=== PATIENT | female | born 1955 | race Caucasian/White ===

== ENCOUNTER 2022-06-26 07:17 | Outpatient (CLI) | payer MEDICARE, OTHER | END 2022-06-26 23:59 | disposition home or self-care (01) | LOC: LAB 07:17 | PROVIDERS: ATTEND Surgery | DX: Z01.812 Encounter for preprocedural laboratory examination (principal); Z20.822 Contact with and (suspected) exposure to COVID-19 ==

== ENCOUNTER 2022-06-29 07:24 | Inpatient (IN) | payer MEDICARE, OTHER ==
[~2022-06-29] VITALS: Ht 152.4 cm; Wt 82.6 kg
[2022-06-29 07:51] LABS: HEMATOCRIT 40.5 % (31.2-41.9); MEAN CORPUSCULAR HEMOGLOBIN 32.7 uug (24.7-32.8); MEAN CORPUSCULAR VOLUME 95.8 fL (75.5-95.3); PLATELET COUNT (AUTO) 207 K/uL (179-408)
[2022-06-29 08:05] LABS: BILIRUBIN,TOTAL 1.5 mg/dL (0.2-1.0); CREATININE 0.8 mg/dL (0.6-1.3); POTASSIUM 3.8 mmol/L (3.5-5.1)
[2022-06-29 08:28] LABS: *BLOOD, URINE NEGATIVE (NEGATIVE); *CLARITY,URINE CLEAR (CLEAR); *COLOR,URINE YELLOW (YELLOW); *KETONES,URINE NEGATIVE (NEGATIVE); *UROBILINOGEN,URINE 0.2 E.U./dl (NORMAL); LEUKOCYTE ESTERASE ,URINE NEGATIVE (NEGATIVE); NITRITE, URINE NEGATIVE (NEGATIVE); UGLUCOSE NEGATIVE (NEGATIVE)
[2022-06-29 09:22] LABS: *BILIRUBIN,URIN 1+ (NEGATIVE)
[2022-06-29 09:41] LABS: RBC,URINE 0-3 /HPF (0-3)
[2022-06-29 09:42] LABS: BACTERIA,URINE FEW /HPF (NONE SEEN); SQUAMOUS EPITHELIAL CELL,UR MODERATE /HPF (NONE SEEN); WBC,URINE 0-3 /HPF (0-3)
[2022-06-29] MEDS ORDERED: METHYLENE BLUE 50 MG/10 ML AMPUL (0.5%) ONE (09:42)
[2022-06-29] MEDS ORDERED: PROPOFOL 200 MG/20 ML BOTTLE ONE ×3 (10:55)
[2022-06-29] MEDS ORDERED: LIDOCAINE-MPF 2% 5 ML VIAL ONE (10:55)
[2022-06-29] MEDS ORDERED: TELM40TA8 PO (13:44)
[2022-06-29] MEDS ORDERED: METO50TA16 PO (13:44)
[2022-06-29] MEDS ORDERED: MECL-159 PO (13:44)
[2022-06-29] MEDS ORDERED: OXYB5TAB16 PO (13:44)
[2022-06-29] MEDS ORDERED: MAGN400C PO (13:44)
[2022-06-29] MEDS ORDERED: OMEG1CAP PO (13:44)
[2022-06-29] MEDS ORDERED: SIMV-46 PO (13:44)
[2022-06-29] MEDS ORDERED: OMEP20CA15 PO (13:44)
[2022-06-29] MEDS ORDERED: CYCL5TAB PO (13:44)
[2022-06-29 13:56] VITALS: BP 144/62
[2022-06-29] MEDS ORDERED: ZOLPIDEM 5 MG TABLET PO PRN (15:45)
[2022-06-29] MEDS ORDERED: MORPHINE SULFATE 2 MG/1 ML DISP.SYRIN IV PRN (15:45)
[2022-06-29] MEDS ORDERED: MECLIZINE HCL 25 MG TABLET PO PRN (15:45)
[2022-06-29] MEDS ORDERED: ACETAMINOPHEN 325 MG TABLET PO PRN (15:45)
[2022-06-29] MEDS ORDERED: METO-357 PO (15:46)
[2022-06-29] MEDS ORDERED: OXYB-58 PO (15:50)
[2022-06-29] MEDS ORDERED: ICOS1CAP PO (15:50)
[2022-06-29 16:00] VITALS: BP 108/52
--- NOTE | 2022-06-29 16:19 | NUR ---
New admission from OR. Patient came in for colonscopy mass on rectum. Scheduled for surgery on Wednesday for a low exploratory laparotomy partial sigmoid resection. She is a 66 year old female. She is alert and oriented x4, Farsi speaking but can understand Pashto. Patient is full code, NKA. normal air movement with no apparent distress. She is on clear liquid diet. Tomorrow, need to be NPO after midnight. Skin intact, cool to the touch. Patient has Left Arm IV 22gauge. Patient pass history are metabolic syndrome, HTN, obesity, rectal bleeding and hysterectomy in 1994. She is calm and relax currently. All orders placed. Will continue to monitor on current treatment plan.
[2022-06-29] MEDS ORDERED: VALSARTAN 80 MG TABLET PO SCH (16:30)
[2022-06-29] MEDS: OMEGA-3 FATTY ACIDS/FISH OIL CAPSULE PO SCH (16:49)
--- NOTE | 2022-06-29 17:47 | NUR ---
Consent paper sign by patient and it placed in her chart.
[2022-06-29 20:00] VITALS: BP 124/64
[2022-06-29] MEDS ORDERED: SIMVASTATIN 20 MG TABLET PO SCH (21:00)
[2022-06-30 04:00] VITALS: BP 93/49
[2022-06-30 06:46] LABS: HEMATOCRIT 37.2 % (31.2-41.9); MEAN CORPUSCULAR VOLUME 96.2 fL (75.5-95.3); PLATELET COUNT (AUTO) 196 K/uL (179-408)
[2022-06-30 07:18] LABS: CARBON DIOXIDE 30 mmol/L (21-32); CHLORIDE 107 mmol/L (98-107); CREATININE 0.8 mg/dL (0.6-1.3); GLUCOSE 106 mg/dL (74-106); MAGNESIUM 1.8 mg/dL (1.8-2.4); PHOSPHOROUS 4.2 mg/dL (2.5-4.9); POTASSIUM 3.6 mmol/L (3.5-5.1); UREA NITROGEN, BLOOD < 1 mg/dL (7-18)
--- NOTE | 2022-06-30 07:45 | NUR ---
RECEIVED PATIENT SLEEPING COMFORTABLY IN BED. AAOX4. NO DISTRESS NOTED AT THIS TIME. LEFT HAND IV SITE IS PATENT AND INTACT. BRP. NO COMPLAINTS OF PAIN AT THIS TIME. CLEAR LIQUID DIET IN PREPARATION FOR GI SURGERY AT 07/01. CONSENT IS SIGNED. SAFETY AND COMFORT MEASURES ENFORCED.
[2022-06-30] MEDS: MAGNESIUM OXIDE 400 MG TABLET PO SCH (08:34)
[2022-06-30] MEDS: OXYBUTYNIN XL 5 MG TABSR PO SCH (08:34)
[2022-06-30] MEDS: PANTOPRAZOLE SODIUM 40 MG VIAL IV SCH (08:34)
[2022-06-30] MEDS: OMEGA-3 FATTY ACIDS/FISH OIL CAPSULE PO SCH ×2 (08:43→17:11)
[2022-06-30] MEDS ORDERED: OXYBUTYNIN CHLORIDE 5 MG TABLET PO SCH (09:00)
[2022-06-30] MEDS ORDERED: METOPROLOL TARTRATE 50 MG TABLET PO SCH (09:00)
[2022-06-30] MEDS ORDERED: METOPROLOL SUCCINATE XL 50 MG TAB.SR.24H PO SCH (09:00)
[2022-06-30 09:27] LABS: THYROID STIMULATING HORMONE 0.617 mIU/mL (0.358-3.740)
[2022-06-30] MEDS: METOPROLOL SUCCINATE XL 50 MG TAB.SR.24H PO SCH ×2 (09:52→17:11)
[2022-06-30 11:01] VITALS: BP 100/47
[2022-06-30] MEDS: NEOMYCIN SULFATE 500 MG TABLET PO SCH ×3 (13:22→21:40)
[2022-06-30] MEDS: ERYTHROMYCIN BASE 250 MG TABLET.DR PO SCH ×3 (13:22→21:39)
[2022-06-30 15:10] VITALS: BP 123/68
[2022-06-30] MEDS: ONDANSETRON 4 MG/2 ML VIAL IV PRN (18:28)
--- NOTE | 2022-06-30 19:00 | NUR ---
PATIENT RESTED THROUGHOUT MOST OF THE DAY. NO DISTRESS NOTED. REPORTED FEELING NAUSEATED, ZOFRAN GIVEN AT 1628, REASSESSED AT 1658. DECREASED FEELING OF NAUSEA. NEEDS FOLLOW UP ON MEDICATIONS. NPO AT 07/01 MIDNIGHT. CONSENT FORM SIGNED. 2 FLEET ENEMAS TO BE GIVEN IN THE MORNING OF 07/01(0730, 0800) ORDERED BY DR. FELIZ. SURGERY IS SAID TO BE AT 0900 ON 07/01. SAFETY AND COMFORT MEASURES MAINTAINED.
[2022-06-30 20:00] VITALS: BP 125/65
[2022-07-01 04:00] VITALS: BP 103/63
--- NOTE | 2022-07-01 04:11 | NUR ---
pt remains npo after midught for surgical procedure in am .iv patent and intact surgical bath given,pt resting in no distress at this time.
[2022-07-01 06:09] LABS: MEAN CORPUSCULAR HEMOGLOBIN 33.2 uug (24.7-32.8); MEAN CORPUSCULAR VOLUME 96.1 fL (75.5-95.3); PLATELET COUNT (AUTO) 200 K/uL (179-408)
[2022-07-01] MEDS ORDERED: FLEET ENEMA 133 ML BOTTLE RC ONE ×3 (06:24→08:00)
[2022-07-01 06:41] LABS: CREATININE 0.9 mg/dL (0.6-1.3); MAGNESIUM 1.9 mg/dL (1.8-2.4); POTASSIUM 3.9 mmol/L (3.5-5.1)
[2022-07-01] MEDS ORDERED: HYDROMORPHONE 2 MG/1 ML DISP.SYRIN ONE (08:31)
[2022-07-01] MEDS ORDERED: FENTANYL CITRATE 100 MCG/2 ML AMPUL ONE (08:31)
[2022-07-01] MEDS ORDERED: MIDAZOLAM HCL 2 MG/2 ML VIAL ONE (08:31)
[2022-07-01] MEDS ORDERED: ROCURONIUM BROMIDE 50 MG/5 ML VIAL ONE (08:32)
[2022-07-01] MEDS ORDERED: FAMOTIDINE. 20 MG/2 ML VIAL IV ONE (08:32)
--- NOTE | 2022-07-01 08:35 | NUR ---
pt went to surgery. preop checklist done. pt was pecan picker by surgery team.
[2022-07-01] MEDS: PANTOPRAZOLE SODIUM 40 MG VIAL IV SCH (09:00)
[2022-07-01] MEDS: OXYBUTYNIN XL 5 MG TABSR PO SCH (09:00)
[2022-07-01] MEDS: MAGNESIUM OXIDE 400 MG TABLET PO SCH (09:00)
[2022-07-01] MEDS: METOPROLOL SUCCINATE XL 50 MG TAB.SR.24H PO SCH ×2 (09:00→17:00)
[2022-07-01] MEDS: OMEGA-3 FATTY ACIDS/FISH OIL CAPSULE PO SCH (09:00)
[2022-07-01] MEDS ORDERED: ENOXAPARIN SODIUM 40 MG/0.4 ML DISP.SYRIN SQ ONE (09:17)
--- NOTE | 2022-07-01 09:21 | NUR ---
keep telemetry on per coning machine operator
[2022-07-01] MEDS ORDERED: LIDOCAINE HCL 1% 20 ML VIAL ONE (09:44)
[2022-07-01] MEDS ORDERED: BUPIVACAINE/EPI PF 0.25% 10 ML VIAL IJ ONE (09:45)
[2022-07-01] MEDS ORDERED: CIPROFLOXACIN LACTATE/D5W 400 MG/200 ML PIGGYBACK IV ONE (09:52)
[2022-07-01] MEDS ORDERED: METRONIDAZOLE 500 MG/NS 100 ML PIGGYBACK IV ONE (09:52)
[2022-07-01] MEDS ORDERED: BACITRACIN/POLYMYXIN B OINT 15 GM TUBE ONE (12:24)
[2022-07-01] MEDS ORDERED: CEFAZOLIN 1 G VIAL ONE ×2 (13:09)
[2022-07-01] MEDS ORDERED: LIDOCAINE-MPF 2% 5 ML VIAL ONE (13:09)
[2022-07-01] MEDS ORDERED: NEOSTIGMINE METHYLSULFATE 10 MG/10 ML VIAL ONE (13:09)
[2022-07-01] MEDS ORDERED: GLYCOPYRROLATE 0.2 MG/ML VIAL ONE ×3 (13:09)
[2022-07-01] MEDS ORDERED: PROPOFOL 200 MG/20 ML BOTTLE ONE (13:09)
[2022-07-01] MEDS ORDERED: METOCLOPRAMIDE HCL 10 MG/2 ML VIAL ONE (13:09)
[2022-07-01] MEDS ORDERED: ONDANSETRON 4 MG/2 ML VIAL ONE ×2 (13:09→13:26)
--- NOTE | 2022-07-01 14:35 | NUR ---
PT IS BACK ON THE MS FLOOR. S/P LOW ANTERIOR RESECTION EX-LAP, RESECTION OF SIGMOID W/ ANASTOMOSIS. RECEIVED REPORT FROM PRECILITA M. PT LETHARGIC; AFEBRILE. NO COMPLAIN OF PAIN. ZOFRAN WAS JUST GIVEN AT 1400. FC INTACT AND DRAINING YELLOW COLOR URINE. MONITOR URINE OUT Q4 PER SURGEON. POST OP ORDER RECEIVED. PT IS ON NPO EXCEPT MEDS. PT MAY HAVE ICE CHIPS. ON 2 L NC FOR COMFORT. OUT OF BED IN AM PER MD ORDER.
[2022-07-01] MEDS: IV LACTATED RINGERS SOLUTION 1,000 ML IV PRN (15:48)
[2022-07-01 16:07] VITALS: BP 109/49
[2022-07-01] MEDS: METRONIDAZOLE 500 MG/NS 100ML 500 MG in PREMIXED 1 EACH IV SCH (17:41)
[2022-07-01] MEDS ORDERED: LORAZEPAM 1 MG TABLET PO SCH (18:00)
[2022-07-01] MEDS: ONDANSETRON 4 MG/2 ML VIAL IV PRN (18:56)
[2022-07-01 20:00] VITALS: BP 136/73
[2022-07-01] MEDS ORDERED: SIMVASTATIN 40 MG TABLET PO SCH (21:00)
[2022-07-01] MEDS ORDERED: SIMVASTATIN 20 MG TABLET PO SCH (21:00)
[2022-07-01] MEDS: CIPROFLOXACIN IV 400 MG in PREMIXED 1 EACH IV SCH (21:20)
[2022-07-01] MEDS: LORAZEPAM 1 MG TABLET PO SCH (21:20)
[2022-07-01] MEDS: CELECOXIB 200 MG CAPSULE PO SCH (21:20)
[2022-07-01] MEDS: ACETAMINOPHEN 325 MG TABLET PO SCH (21:21)
[2022-07-01] MEDS: GABAPENTIN 300 MG CAPSULE PO SCH (21:21)
--- NOTE | 2022-07-01 21:32 | NUR ---
Received patient laying iin bed. Family present at the bedside. AAOX4. No complain of pain or SOB. On 2L/mini NC, O2 saturation 97%. Sinus rhythm on tele with a Heart rate of 85/min. Peripheral IV 20 gauge on left hand intact and patent. IV fluid infusing. Surgical site with dressing intact, clean and dry. Barkley catheter intact and draining via gravity. Needs assess and attended to. Safety measures initiated and call light within reach.
--- NOTE | 2022-07-01 22:00 | NUR ---
Telephone call from Dr Harvey and updated on patient current condition and states understanding.
[2022-07-02] VITALS: BP 121/65
[2022-07-02] MEDS: METRONIDAZOLE 500 MG/NS 100ML 500 MG in PREMIXED 1 EACH IV SCH ×3 (01:27→17:13)
[2022-07-02] MEDS: IV LACTATED RINGERS SOLUTION 1,000 ML IV PRN ×2 (01:28→13:27)
[2022-07-02 04:00] VITALS: BP 117/62
[2022-07-02] MEDS: ACETAMINOPHEN 325 MG TABLET PO SCH ×3 (05:55→21:04)
[2022-07-02] MEDS: GABAPENTIN 300 MG CAPSULE PO SCH ×3 (05:55→21:04)
[2022-07-02 06:16] LABS: HEMATOCRIT 34.1 % (31.2-41.9); MEAN CORPUSCULAR HEMOGLOBIN 32.5 uug (24.7-32.8); MEAN CORPUSCULAR VOLUME 96.9 fL (75.5-95.3); PLATELET COUNT (AUTO) 181 K/uL (179-408)
[2022-07-02 07:31] LABS: CREATININE 0.8 mg/dL (0.6-1.3); MAGNESIUM 1.6 mg/dL (1.8-2.4); PHOSPHOROUS 3.4 mg/dL (2.5-4.9); POTASSIUM 3.5 mmol/L (3.5-5.1)
[2022-07-02] MEDS ORDERED: POTASSIUM CHLORIDE 20 MEQ POWDER PACKET GT ONE (08:00)
[2022-07-02] MEDS: CIPROFLOXACIN IV 400 MG in PREMIXED 1 EACH IV SCH ×2 (08:23→21:04)
[2022-07-02] MEDS: PANTOPRAZOLE SODIUM 40 MG VIAL IV SCH (09:09)
[2022-07-02] MEDS: CELECOXIB 200 MG CAPSULE PO SCH ×2 (09:09→21:04)
[2022-07-02] MEDS: LORAZEPAM 1 MG TABLET PO SCH ×2 (09:09→21:04)
[2022-07-02] MEDS: METOPROLOL SUCCINATE XL 50 MG TAB.SR.24H PO SCH (09:10)
[2022-07-02] MEDS: ENOXAPARIN SODIUM 40 MG/0.4 ML DISP.SYRIN SQ SCH (09:11)
--- NOTE | 2022-07-02 10:14 | NUR ---
CALLED AND SPOKE WITH DR TRINI KEENAN DIET AND HE STATED THAT PATIENT MAY BE STARTED ON CLEAR LIQUIDS DIET.KITCHEN NOTIFIED
[2022-07-02] MEDS: MAGNESIUM SULFATE/D5W 100 ML IV SCH ×2 (10:18→11:26)
[2022-07-02 11:17] VITALS: BP 103/56
[2022-07-02 11:30] VITALS: BP 103/56
[2022-07-02] MEDS: DILTIAZEM HCL 30 MG TABLET PO SCH ×2 (13:28→21:05)
[2022-07-02 15:21] VITALS: BP 102/55
--- NOTE | 2022-07-02 17:00 | NUR ---
PATIENT ASSISTED WITH THE FRONT WHEEL WALKER AMBULATED IN THE HALLWAY AND TOLERATED WELL STATED SHE FELT OKAY DENIES DIZINESS ENCOURAGED INCENTIVE SPIROMETER WILL CONTINUE TO OBSERVE
--- NOTE | 2022-07-02 18:24 | NUR ---
NOT EATING HER CLEAR LIQUIDS DIET BECAUSE SHE SAID THAT SHE DOES NOT LIKE IT.
--- NOTE | 2022-07-02 19:30 | NUR ---
Received patient laying in bed. present at the bedside. AAOX4. No complain of pain or SOB at this time. On 2L/mini NC. Sinus rhythm on tele. IV site on left hand intact and patent. IV fluid infusing. Surgical site with dressing intact, clean and dry. Barkley catheter intact and draining via gravity. Needs assess and attended to. Safety measures initiated and call light within reach.
[2022-07-02 20:27] VITALS: BP 107/57
--- NOTE | 2022-07-02 22:20 | NUR ---
Dr Harvey called and updated on [patient current condition. Dr. Harvey with order to discontinue IV fluids. Order noted and will carry out. Patient asleep at this time. Updated patient of Dr Harvey's order and states understanding.
[2022-07-03 00:35] VITALS: BP 112/62
[2022-07-03] MEDS: ONDANSETRON 4 MG/2 ML VIAL IV PRN (01:38)
[2022-07-03] MEDS: METRONIDAZOLE 500 MG/NS 100ML 500 MG in PREMIXED 1 EACH IV SCH ×2 (01:38→10:00)
[2022-07-03 04:35] VITALS: BP 128/74
[2022-07-03] MEDS: ACETAMINOPHEN 325 MG TABLET PO SCH ×3 (05:24→21:03)
[2022-07-03] MEDS: GABAPENTIN 300 MG CAPSULE PO SCH ×3 (05:24→21:03)
[2022-07-03] MEDS: DILTIAZEM HCL 30 MG TABLET PO SCH (05:25)
--- NOTE | 2022-07-03 05:35 | NUR ---
Informed Dr. Casanova that patient is complaining of severe heart burn. With order to give patient TUMS every 6 hours PRN. Order noted and will carry out.
[2022-07-03] MEDS ORDERED: CALCIUM CARBONATE 500 MG TAB.CHEW PO PRN (05:45)
[2022-07-03] MEDS: CIPROFLOXACIN IV 400 MG in PREMIXED 1 EACH IV SCH (08:55)
[2022-07-03] MEDS: PANTOPRAZOLE SODIUM 40 MG VIAL IV SCH (08:55)
[2022-07-03] MEDS: LORAZEPAM 1 MG TABLET PO SCH ×2 (08:56→21:03)
[2022-07-03] MEDS: CELECOXIB 200 MG CAPSULE PO SCH (08:56)
[2022-07-03] MEDS: ENOXAPARIN SODIUM 40 MG/0.4 ML DISP.SYRIN SQ SCH (08:57)
[2022-07-03 09:30] LABS: MEAN CORPUSCULAR HEMOGLOBIN 32.6 uug (24.7-32.8); MEAN CORPUSCULAR VOLUME 96.7 fL (75.5-95.3); PLATELET COUNT (AUTO) 198 K/uL (179-408)
[2022-07-03 09:45] LABS: CREATININE 0.8 mg/dL (0.6-1.3); MAGNESIUM 2.2 mg/dL (1.8-2.4); TOTAL PROTEIN, SERUM 5.9 g/dL (6.4-8.2)
--- NOTE | 2022-07-03 09:59 | NUR ---
CALL RECEIVED FROM DR FELIZ NOTIFIED HIM THAT PATIENT IS FEELING LIKE SHE HAS BURNING SENSATIONS FROM HER ABDOMEN ALL THE WAY TO HER THROAT SHE HAS PROTONIX ON BOARD WITH WAS GIVEN TO HER ALSO THAT SHE WAS NOT EATING HER CLEAR LIQUIDS DIET AND HE STATED THAT IT WAS OKAY IF PATIENT IS NOT EATING BUT TO ADD MAALOX NEEDED FOR THE BURNING SENSATION AND NOTED. ALSO STATED THAT HE WILL CALL PATIENT IN HER PERSONAL CELL PHONE AND GET MORE DETAILS FROM HER.
[2022-07-03] MEDS ORDERED: MAG HYDROX/AL HYDROX/SIMETH 30 ML LIQUID UDC PO PRN (10:00)
--- NOTE | 2022-07-03 10:18 | NUR ---
CALL RECEIVED FROM DR FELIZ AFTER HE SPOKE WITH THE PATIENT WITH NEW ORDERS AND NOTED HE ALSO STATED TO PLACE PATIENT BACK TO NPO EXCEPT MEDS.PATIENT HAS NO IV ACCESS AND ATTEMPT TO INSERT BACK IN FAILED BECAUSE PATIENT REFUSED AT THIS TIME SO DUE ANTIBIOTICS ARE NOT GIVEN WILL CONTINUE TO OBSERVE.
--- NOTE | 2022-07-03 10:39 | NUR ---
PATIENT SEEN AND EXAMINED BY DR SURESH WITH NEW ORDERS AND NOTED.PATIENT IS REFUSING TO HAVE HER IV REINSERTED AT THIS TIME BUT DR SURESH HAS CONVINCED HER TO HAVE IT INSERTED WILL ATTEMPT TO INSERT SOON POSSIBLE.
[2022-07-03 11:07] VITALS: BP 146/79
[2022-07-03] MEDS: SUCRALFATE 1 G/10 ML LIQUID UDC PO SCH ×3 (11:37→21:03)
[2022-07-03] MEDS: DILTIAZEM HCL CD 120 MG CAP.SR.24H PO SCH (11:38)
[2022-07-03] MEDS: METOCLOPRAMIDE HCL 10 MG TABLET PO SCH ×2 (11:38→17:44)
[2022-07-03] MEDS: IV NS 1000 ML 1,000 ML IV PRN (12:23)
--- NOTE | 2022-07-03 13:00 | NUR ---
DR FELIZ HERE SPOKE WITH THE FAMILY AT LENGTH AWARE OF THE KUB RESULT
[2022-07-03 15:09] VITALS: BP 123/73
--- NOTE | 2022-07-03 17:30 | NUR ---
COURTNEY CHOW MOTTLER OPERATOR HERE SEEN PATIENT AWARE OF THE KUB RESULT.
--- NOTE | 2022-07-03 19:30 | NUR ---
Received patient lying in bed. Asleep at this time. at bedside. In no acute distress. No signs of any pain or SOB. NSR on tele with HR of 60/min.Midline on left upper arm intact and patent. IVF infusing. Abdominal dressing intact dry and clean. Barkley catheter intact and draining via gravity. Needs assessed and attended to. Safety measure initiated and call light within reached.
[2022-07-03 20:00] VITALS: BP 139/61
[2022-07-04] VITALS: BP 112/51
[2022-07-04] MEDS: METOCLOPRAMIDE HCL 10 MG TABLET PO SCH ×4 (00:06→16:57)
[2022-07-04] MEDS: ACETAMINOPHEN 325 MG TABLET PO SCH ×3 (05:05→21:03)
[2022-07-04] MEDS: GABAPENTIN 300 MG CAPSULE PO SCH ×3 (05:05→21:02)
[2022-07-04] MEDS: IV NS 1000 ML 1,000 ML IV PRN (05:05)
--- NOTE | 2022-07-04 06:16 | NUR ---
No adverse reaction noted from IV antibiotic. IVF infusing. NSR on tele with HR of 65/min. Denies any heartburn. Needs attended to and met. Safety measure maintained and call light within reached.
[2022-07-04] MEDS: SUCRALFATE 1 G/10 ML LIQUID UDC PO SCH ×4 (06:33→21:02)
[2022-07-04 07:11] LABS: HEMATOCRIT 33.2 % (31.2-41.9); MEAN CORPUSCULAR HEMOGLOBIN 33.2 uug (24.7-32.8); MEAN CORPUSCULAR VOLUME 96.1 fL (75.5-95.3); PLATELET COUNT (AUTO) 194 K/uL (179-408)
[2022-07-04 07:35] LABS: CREATININE 0.7 mg/dL (0.6-1.3); MAGNESIUM 1.9 mg/dL (1.8-2.4); PHOSPHOROUS 3.4 mg/dL (2.5-4.9); POTASSIUM 3.8 mmol/L (3.5-5.1)
--- NOTE | 2022-07-04 08:00 | NUR ---
RECEIVED PATIENT IN BED AWAKE ALERT, MOANS BUT NO SS OF PAIN OR DISTRESS WITH O2 AT 2L NC SATURATING 97%. GT FEEDING AT 40 MLS/HR. REQUIRES FREQUENT SUCTIONING DUE TO MODERATE SECRETIONS. GOOD ORAL CARE DONE Addendum: 07/04/22 at 1311 by VENKATA GARAY RN ERROR
--- NOTE | 2022-07-04 08:00 | NUR ---
RECEIVED PATIENT IN BED RESTING COMFORTABLY, NO SS OF DISTRESS OR ACUTE PAIN. NPO OBSERVED WITH CONTINUOUS IV NS AT 75 MLS/HR. SR ON MONITOR
[2022-07-04] MEDS: ENOXAPARIN SODIUM 40 MG/0.4 ML DISP.SYRIN SQ SCH (09:37)
[2022-07-04] MEDS: DILTIAZEM HCL CD 120 MG CAP.SR.24H PO SCH (09:37)
[2022-07-04] MEDS: LORAZEPAM 1 MG TABLET PO SCH ×2 (09:37→21:02)
[2022-07-04] MEDS: PANTOPRAZOLE SODIUM 40 MG VIAL IV SCH (09:38)
--- NOTE | 2022-07-04 10:00 | NUR ---
DR FELIZ CALLED GAVE ORDERS, OKAYED TO START ON SOFT DIET AND DECREASE IVF TO 30 MLS/HR
[2022-07-04 12:00] VITALS: BP 126/58
--- NOTE | 2022-07-04 13:03 | NUR ---
SEEN BY DR WALKER AND Bhavna NÚÑEZ HOSPITALIST FOR FOLLOW-UP SEE NOTES
[2022-07-04 16:00] VITALS: BP 118/69
--- NOTE | 2022-07-04 17:52 | NUR ---
TOLERATING DIET ORDERED DENIES PAIN OR N/V SR ON MONITOR
[2022-07-04 20:00] VITALS: BP 120/54
--- NOTE | 2022-07-04 22:00 | NUR ---
Dr Harvey called aqnd made TO: DEMETRIO Barkley in AM; Demetrio IVF now
[2022-07-04 22:51] VITALS: BP 120/54
[2022-07-05] MEDS: METOCLOPRAMIDE HCL 10 MG TABLET PO SCH ×5 (00:38→20:47)
[2022-07-05] MEDS: GABAPENTIN 300 MG CAPSULE PO SCH ×3 (06:27→21:11)
[2022-07-05] MEDS: ACETAMINOPHEN 325 MG TABLET PO SCH ×3 (06:27→21:11)
[2022-07-05 06:55] LABS: HEMATOCRIT 31.4 % (31.2-41.9); MEAN CORPUSCULAR HEMOGLOBIN 32.8 uug (24.7-32.8); MEAN CORPUSCULAR VOLUME 95.6 fL (75.5-95.3); PLATELET COUNT (AUTO) 207 K/uL (179-408)
[2022-07-05 07:25] LABS: CREATININE 0.6 mg/dL (0.6-1.3); MAGNESIUM 1.8 mg/dL (1.8-2.4); PHOSPHOROUS 2.8 mg/dL (2.5-4.9); POTASSIUM 3.6 mmol/L (3.5-5.1)
[2022-07-05] MEDS: SUCRALFATE 1 G/10 ML LIQUID UDC PO SCH ×5 (08:11→21:00)
[2022-07-05] MEDS: LORAZEPAM 1 MG TABLET PO SCH ×2 (08:39→20:47)
[2022-07-05] MEDS: PANTOPRAZOLE SODIUM 40 MG TABLET.DR PO SCH (08:40)
[2022-07-05] MEDS: DILTIAZEM HCL CD 120 MG CAP.SR.24H PO SCH (08:40)
[2022-07-05] MEDS: ENOXAPARIN SODIUM 40 MG/0.4 ML DISP.SYRIN SQ SCH (08:41)
--- NOTE | 2022-07-05 09:00 | NUR ---
DR REICH HERE SEEN PATIENT WITH NEW ORDERS AND NOTED.
[2022-07-05] MEDS: MAGNESIUM SULFATE/D5W 100 ML IV SCH ×2 (10:59→13:00)
[2022-07-05 11:40] VITALS: BP 125/52
--- NOTE | 2022-07-05 11:56 | NUR ---
PATIENT STATED FEELS MUCH BETTER SITTING AT THE EDGE OF THE BED EATING DENIES DISCOMFORTS MAG LEVEL IS 1.5 WITH NEW REPLACEMENT ORDER AND NOTED.
[2022-07-05] MEDS: POTASSIUM CHLORIDE 50 ML IV SCH ×2 (13:52→15:10)
[2022-07-05 15:56] VITALS: BP 144/65
[2022-07-05] MEDS: ONDANSETRON 4 MG/2 ML VIAL IV PRN (16:58)
--- NOTE | 2022-07-05 16:58 | NUR ---
PATIENT C/O NAUSEA BUT NO EMESIS MEDICATED WITH ZOFRAN ORDERED MADE COMFORTABLE WILL CONTINUE TO OBSERVE.
--- NOTE | 2022-07-05 17:54 | NUR ---
AMBULATED IN THE HALLWAY WITH HER AT HER SIDE HAND HELD WITH FAIR ENDURANCE.
[2022-07-05 20:48] VITALS: BP 120/68
[2022-07-06 05:00] VITALS: BP 107/56
[2022-07-06] MEDS: PANTOPRAZOLE SODIUM 40 MG TABLET.DR PO SCH (06:36)
[2022-07-06] MEDS: METOCLOPRAMIDE HCL 10 MG TABLET PO SCH ×2 (06:36→11:52)
[2022-07-06] MEDS: ACETAMINOPHEN 325 MG TABLET PO SCH ×2 (06:36→13:09)
[2022-07-06] MEDS: SUCRALFATE 1 G/10 ML LIQUID UDC PO SCH ×2 (06:36→11:30)
[2022-07-06] MEDS: GABAPENTIN 300 MG CAPSULE PO SCH ×2 (06:36→13:09)
[2022-07-06 07:13] LABS: HEMATOCRIT 32.1 % (31.2-41.9); MEAN CORPUSCULAR HEMOGLOBIN 32.8 uug (24.7-32.8); MEAN CORPUSCULAR VOLUME 96.1 fL (75.5-95.3); PLATELET COUNT (AUTO) 231 K/uL (179-408)
[2022-07-06 07:20] LABS: CREATININE 0.5 mg/dL (0.6-1.3); MAGNESIUM 1.9 mg/dL (1.8-2.4); PHOSPHOROUS 3.2 mg/dL (2.5-4.9); POTASSIUM 3.7 mmol/L (3.5-5.1)
[2022-07-06] MEDS: LORAZEPAM 1 MG TABLET PO SCH (09:25)
[2022-07-06] MEDS: DILTIAZEM HCL CD 120 MG CAP.SR.24H PO SCH (09:26)
[2022-07-06] MEDS: ENOXAPARIN SODIUM 40 MG/0.4 ML DISP.SYRIN SQ SCH (09:27)
[2022-07-06] MEDS ORDERED: MAGNESIUM SULFATE/D5W 100 ML IV SCH (11:00)
--- NOTE | 2022-07-06 11:00 | NUR ---
MAG LEVEL IS 1.[address] FELIZ AND HE REMOVED AND CHANGED PATIENT VERTICAL ABDOMINAL DRESSINGS AND APPLIED DRY 4X4 GAUZE AFTER CLEANSING WITH BETADINE LILIBETH REMAIN INTACT.
[2022-07-06] MEDS ORDERED: METO10TA3 PO (11:32)
[2022-07-06] MEDS ORDERED: SUCR1ORA PO (11:32)
[2022-07-06] MEDS ORDERED: DILT120C87 PO (11:32)
[2022-07-06 11:35] VITALS: BP 116/65
[2022-07-06] MEDS: ONDANSETRON 4 MG/2 ML VIAL IV PRN (12:39)
--- NOTE | 2022-07-06 12:40 | NUR ---
PATIENT C/O FEELING NAUSEOUS MEDICATED WITH ZOFRAN ORDERED PATIENT IS ALSO ON ROOM AIR AT THE MOMENT BECAUSE HER O2 WAS STOPPED AND SAT RECHECKED AFTER HALF AN HOUR AND ITS 94-95 PERCENT PATIENT ENCOURAGED TO USE HER INCENTIVE SPIROMETER AND SHE EXPRESSED UNDERSTANDING.DISCHARGE PLANNING.
--- NOTE | 2022-07-06 14:40 | NUR ---
PATIENT DISCHARGED PICKED UP BY HER [facility] IN SATISFACTORY CONDITION WITH DISCHARGE INSTRUCTIONS AND SHE WAS INSTRUCTED TO ENGINE DYNAMOMETER TESTER HER MEDICATIONS AT HER OUTSIDE PHARMACY AND TO FOLLOW UP WITH DR FELIZ ON WEDNESDAY FOR RE EVAL OF HER INCISION AND REMOVAL OF LILIBETH AND SHE EXPRESSED UNDERSTANDING.
== END 2022-07-06 14:40 | disposition home health service (06) | DRG 336 ==
LOC: DS 07:24 → MEDSURG3 12:41 → TELE3 07-01 15:14 → MEDSURG3 07-05 11:45
PROVIDERS: ADMIT Internal Medicine; ATTEND Nurse Practitioner Family
PROC: 0DBN8ZX Excision of Sigmoid Colon, Via Natural or Artificial Opening Endoscopic, Diagnostic (ICD-10-PCS; principal; 2022-06-29)
PROC: 0DBL0ZX Excision of Transverse Colon, Open Approach, Diagnostic (ICD-10-PCS; 2022-06-29)
PROC: 0DNN0ZZ Release Sigmoid Colon, Open Approach (ICD-10-PCS; 2022-07-01)
PROC: 0DNW0ZZ Release Peritoneum, Open Approach (ICD-10-PCS; 2022-07-01)
PROC: 05H633Z Insertion of Infusion Device into Left Subclavian Vein, Percutaneous Approach (ICD-10-PCS; 2022-07-03)
PROC: B547ZZA Ultrasonography of Left Subclavian Vein, Guidance (ICD-10-PCS; 2022-07-03)
DX: D12.5 Benign neoplasm of sigmoid colon (principal); K56.7 Ileus, unspecified; Z68.35 Body mass index [BMI] 35.0-35.9, adult; D64.9 Anemia, unspecified; E66.9 Obesity, unspecified; I49.3 Ventricular premature depolarization; I10 Essential (primary) hypertension; E78.5 Hyperlipidemia, unspecified; K66.0 Peritoneal adhesions (postprocedural) (postinfection); E80.6 Other disorders of bilirubin metabolism; E87.6 Hypokalemia; E83.42 Hypomagnesemia; Z20.822 Contact with and (suspected) exposure to COVID-19; Z90.710 Acquired absence of both cervix and uterus; D12.3 Benign neoplasm of transverse colon
CPT/HCPCS: 36415; 71045; 74018; 82378; 83550; 83735; 84100; 84443; 85025; 85730; A4649; A4663; C9113; G0378; J0690; J0744; J1170; J1650; J2250; J2270; J2405; J2765; J3010; J3475; J3480; J3490; J7040; J7120; J8499; J8597